=== PATIENT | female | born 1970 | race Caucasian/White ===

== ENCOUNTER 2020-02-01 20:13 | Emergency (ER) | payer BC ==
[2020-02-01] MEDS ORDERED: Ondansetron INJ* 2 MG/ML VIAL IV ONE (22:16)
[2020-02-01] MEDS ORDERED: Ketorolac INJ* 30 MG/ML 1 ML VIAL IV PUSH ONE (22:16)
--- NOTE | 2020-02-01 22:42 | ED ---
GI/ HPI - HPI Summary HPI Summary: 49 year old female presents with abd pain today. Pain is on the left side of her abdomen. She states that she had a fever at home of 102. She admits to nausea and vomiting. No diarrhea. She has decreased urination and dysuria. There was some pink tinge to urine. Denies any flank pain. Denies any chest pain or shortness of breath. No sore throat. No sinus congestion. No headache or dizziness. not around anyone who is sick. States she's not had an appetite. no previous abdominal surgeries. No history of diverticulitis colitis. 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 She has no medical conditions. She has family history of kidney stones. - History of Current Complaint Chief Complaint: EDNauseaVomitDiarrh Time Seen by Provider: 02/01/20 22:03 Stated Complaint: ABD PAIN/FEVER/NAUSEA PER PT Pain Intensity: 0 - Allergy/Home Medications Allergies/Adverse Reactions: Allergies Allergy/AdvReac Type Severity Reaction Status Date / Time No Known Allergies Allergy Verified 02/01/20 20:28 PMH/Surg Hx/FS Hx/Imm Hx Endocrine/Hematology History: Denies: Hx Anticoagulant Therapy Cardiovascular History: Denies: Hx Myocardial Infarction Infectious Disease History: No Infectious Disease History: Denies: Traveled Outside the [place] in Last 30 Days - Family History Known Family History: Positive: Non-Contributory - Social History Alcohol Use: None Substance Use Type: Reports: None Smoking Status (MU): Never Smoked Tobacco Review of Systems Positive: Fever Negative: Chest Pain Negative: Shortness Of Breath Positive: Abdominal Pain, Vomiting, Nausea. Negative: Diarrhea All Other Systems Reviewed And Are Negative: Yes Physical Exam Triage Information Reviewed: Yes Vital Signs On Initial Exam: Initial Vitals Temp Pulse Resp BP Pulse Ox 0 F 0 0 0/0 0 02/01/20 20:28 02/01/20 20:28 02/01/20 20:28 02/01/20 20:28 02/01/20 20:28 Vital Signs Reviewed: Yes Appearance: Positive: Well-Appearing Skin: Positive: Warm, Dry Head/Face: Positive: Normal Head/Face Inspection Eyes: Positive: Normal, Conjunctiva Clear ENT: Positive: Pharynx normal Respiratory/Lung Sounds: Positive: Clear to Auscultation, Breath Sounds Present Cardiovascular: Positive: Normal, RRR Abdomen Description: Positive: Soft, Other: - tenderness in LUQ and LLQ, greatest in LLQ. Negative: CVA Tenderness (R), CVA Tenderness (L) Bowel Sounds: Positive: Present Musculoskeletal: Positive: Normal Neurological: Positive: Normal Psychiatric: Positive: Normal Procedures - Sedation Patient Received Moderate/Deep Sedation with Procedure: No Diagnostics - Vital Signs Vital Signs Temp Pulse Resp BP Pulse Ox 02/01/20 20:28 0 F 0 0 0/0 0 - Laboratory Result Diagrams: 02/01/20 22:54 02/01/20 22:54 Lab Statement: Any lab studies that have been ordered have been reviewed, and results considered in the medical decision making process. - CT abd CT Interpretation Completed By: Radiologist Summary of CT Findings: IMPRESSION: 1. Mild hydronephrosis of the left kidney. Small nonobstructing left renal calculi are visualized. At the left ureterovesical junction, a 3 mm calculus is identified. 2. A few small hepatic lesions are visualized, suggestive of cysts. 3. Mild right renal pelviectasis. 4. Additional findings described above. Re-Evaluation - Re-Evaluation First Eval Re-Evaluation Time: 23:54 Change: Improved Comment: patient did have kidney infection when was little. has family history of kidney stones. pain improved Second Eval Re-Evaluation Time: 01:15 Comment: pain still manageable, discussed CT results GIGU Course/Dx - Course Course Of Treatment: 49 year old female w/ no PMH presents with left sided abd pain today. had a fever at home of 102. She admits to nausea and vomiting. She has decreased urination and dysuria. Denies any flank pain. Denies any chest pain or SOB. No sore throat or sinus congestion. family history of kidney stones. On exam tenderness LUQ and LLQ greatest in LLQ. nontender CVA. Is afebrile here. not tachycardic. wbc 19.8. bun 30. Cr 1.26. lfts normal. crp 16. lactic normal. urine shows blood and bacteria. gave 2 liters of fluid as blood pressure is on the lower side. gave dose of zosyn for uti. got ct with contrast as initially thought patient had diveriticulitis. CT shows 3mm stone at uvj. with fever, elevated wbc, UTI will have to transfer patient to facility with urology. [facility]on[facility] valenzuela accepts patient for transfer. - Diagnoses Differential Diagnoses - Female: Diverticulitis, Gastroenteritis (Viral), Gastroenteritis (Bacterial), Urinary Tract Infection, Ureteral Calculi Provider Diagnoses: Ureteral stone, UTI (urinary tract infection), Sepsis - Critical Care Time Critical Care Statement: Critical care time is provided exclusive of any time spent performing procedures. Discharge ED - Sign-Out/Discharge Documenting (check all that apply): Patient Departure - Discharge Plan Condition: Stable Disposition: TRANS HIGHER LVL OF CARE FAC Referrals: No Primary Care Phys,NOPCP [Primary Care Provider] - - Billing Disposition and Condition Condition: STABLE Disposition: Trans Higher Lvl of Care Fac
[2020-02-01] MEDS: NS 0.9% 1000 ML** 2,000 ML IV ONE (22:50)
[2020-02-01 23:21] LABS: ABS Lymphocytes 0.3 10^3/ul (1.0-4.8); ABS Monocytes 0.5 10^3/ul (0-0.8); ABS Neutrophils 18.9 10^3/ul (1.5-7.7); Eosinophil % 0.1 %; Hematocrit 35 % (35-47); Hemoglobin 12.2 g/dL (12.0-16.0); Lymphocyte % 1.5 %; Mean Corpuscular HGB Conc 35 g/dL (31-36); Mean Corpuscular Hemoglobin 30 pg (27-31); Mean Corpuscular Volume 88 fL (80-97); Platelet Count 189 10^3/uL (150-450); Red Blood Count 4.03 10^6 /uL (3.70-4.87); Red Cell Distribution Width 13 % (10-15); White Blood Count 19.8 10^3/uL (3.5-10.8)
[2020-02-01 23:23] LABS: Urine Appearance Turbid; Urine Bilirubin Negative (Negative); Urine Blood 3+ (Negative); Urine Color Yellow; Urine Glucose Negative (Negative); Urine Ketones Trace (Negative); Urine Nitrite Negative (Negative); Urine Protein 1+(30 mg/dL) (Negative); Urine Specific Gravity 1.014 (1.010-1.030); Urine Urobilinogen Negative (Negative)
[2020-02-01 23:29] LABS: Urine Bacteria 1+ (Absent); Urine Red Blood Cell 3+(>10/hpf) (Absent); Urine Squamous Epithelial Cell Present (Absent); Urine White Blood Cell 3+(>20/hpf) (Absent)
[2020-02-01] MEDS ORDERED: Piperacillin/Tazobac ADVAN(*) 3.375 GM in NS 0.9% 100 ML* 100 ML IVPB ONE (23:37)
[2020-02-01 23:43] LABS: Albumin 4.6 g/dL (3.2-5.2); Albumin/Globulin Ratio 1.5 (1-3); BUN/Creatinine Ratio 23.8 (8-20); C Reactive Protein 16.71 mg/L (<8.01); Calcium 9.3 mg/dL (8.6-10.3); EGFR African American 54.2 (>60); EGFR Non-African American 44.8 (>60); Potassium 3.7 mmol/L (3.5-5.0); Total Bilirubin 0.6 mg/dL (0.2-1.0); Total Protein 7.6 g/dL (6.4-8.9)
[2020-02-02] MEDS ORDERED: Iodixanol* (CONTRAST) 320 MG/ML 100 ML SDV IV ONE (00:11)
[2020-02-02 03:23] VITALS: BP 96/55
--- NOTE | 2020-02-02 17:12 | ED ---
Imaging and Labs Follow Up Follow Up Type: Labs/Cultures Labs/Culture Result: Preliminary blood cultures returned showing 1/4 bottles having gram-negative bacilli. Patient Communication/Plan: Awaiting further results. Nothing further at this time. One of 4 bottles is not suggestive for bacteremia. Provider Diagnoses: Ureteral stone, UTI (urinary tract infection), Sepsis
--- NOTE | 2020-02-03 01:59 | ED ---
Imaging and Labs Follow Up Follow Up Type: Labs/Cultures Labs/Culture Result: two bottle grew gram neg bacilli. Patient Communication/Plan: patient was transferred to [facility] for sepsis. Mirta faxed results to [facility]. Provider Diagnoses: Ureteral stone, UTI (urinary tract infection), Sepsis
== END 2020-02-02 03:22 | disposition short-term general hospital (02) ==
LOC: ED 20:13
DX: A41.9 Sepsis, unspecified organism (principal); N39.0 Urinary tract infection, site not specified; N20.1 Calculus of ureter; R50.9 Fever, unspecified; R11.2 Nausea with vomiting, unspecified
CPT/HCPCS: 36415; 74177; 80053; 81003; 81015; 83605; 83690; 85025; 86140; 87040; 87077; 87086; 87186; 87205; 96361; 96374; 96375; 99284; J1885; J2405; J2543; Q9967